=== PATIENT | female | born 1980 ===

== ENCOUNTER → 2017-01-02 | Outpatient (CLI) | payer OTHER | LOC: BMCIMAGING 10:33 | PROVIDERS: ATTEND Family Medicine | DX: M50.322 Other cervical disc degeneration at C5-C6 level (principal); M43.8X2 Other specified deforming dorsopathies, cervical region ==

== ENCOUNTER → 2017-07-01 | Outpatient (CLI) | payer OTHER | LOC: FIMAGING 14:13 | PROVIDERS: ATTEND Family Medicine | DX: N64.52 Nipple discharge (principal); N64.53 Retraction of nipple | CPT/HCPCS: G0204 ==